=== PATIENT | male | born 1945 | race Caucasian/White ===

== ENCOUNTER 2020-08-19 06:13 | Day surgery (SDC) | payer MEDICARE ==
[~2020-08-19] VITALS: Ht 195.6 cm; Wt 122.5 kg
--- NOTE | ~2020-08-19 | OP ---
PATIENT NAME: TRISTEN RAM MEDICAL RECORD: [id number] :47 LOCATION:D.OPS ADMISSION DATE: SURGEON: SHEILA VILLALPANDO MD DATE OF OPERATION: 08/19/2020 REFERRING PHYSICIAN: Dr. Lemon. OPERATION PERFORMED: Attempted creation of a left radiocephalic AV fistula at the wrist, which was abandoned due to calcifications in the radial artery and then creation of a right brachiocephalic Balaji type AV fistula. SURGEON: Sheila Villalpando MD ANESTHESIA: Regional nerve block and MAC per [employer]. PREOPERATIVE DIAGNOSIS: End-stage renal disease. POSTOPERATIVE DIAGNOSIS: End-stage renal disease. PREOPERATIVE NOTE: Mr. Ram is a 74-year-old gentleman with end-stage renal disease, who needs dialysis access. He is brought to the operating room at this time to create a fistula in his left arm. DESCRIPTION OF PROCEDURE: Under regional nerve block and sedation, the patient was placed in supine position and prepped and draped in a sterile manner. I used a proximal venous tourniquet and applied nitroglycerin ointment to the skin of the forearm and arm and then examined him with ultrasound and found the cephalic vein in the forearm and at the wrist was suitable for creation of the fistula. I did see calcification within the radial artery, but this did not appear to be prohibitive. The brachial artery at the antecubital level and the cephalic vein were very suitable also for creation of fistula and I decided to take a look at the radiocephalic first. I made a longitudinal incision and exposed the radial artery and the cephalic vein. The cephalic vein was ligated distally, transected and bevelled and mobilized and flushed with heparinized saline and prepared for anastomosis. The artery was exposed and controlled with Silastic loops. There was calcification present, but I felt that it was still probable that we can do the anastomosis and create a fistula. I made an arteriotomy and flushed the artery proximally and distally with heparinized saline and then performed an anastomosis end-of-vein to [id number] with running 7-0 Prolene and when the occluding loops and clamps were released, flow established immediately within the fistula, but gradually decreased and the fistula thrombosed. I believe this is due to the calcification on the radial artery and irregularity in the artery around the area of anastomosis. There was a radial artery flow proximally and to a lesser extent distally and I elected to proceed with the proximal fistula. A transverse antecubital incision was made in the brachial artery and cephalic vein exposed and prepared for anastomosis. A Balaji type end-of-vein to [id number] anastomosis was done with running 7-0 Prolene. The artery and vein were flushed with heparinized saline and treated with topical papaverine. When completed, the fistula functioned immediately. The suture line was hemostatic and there was good continuous pulsatile flow in the proximal cephalic vein with ultrasound. There was no evidence of ischemia of the hand and the wounds were then irrigated with saline and then closed with interrupted inverted OPERATIVE REPORT [id number] TRISTEN RAM 3-0 Vicryl and a running intracuticular 4-0 Stratafix. The incisions were sealed with Dermabond glue and dressed with Maxorb Ag, Tegaderm, and Cavilon skin prep. The patient was awakened from his anesthetic and was taken to the recovery room. Blood loss was insignificant, none replaced, about 25 cc. No drain was used and no surgical specimen was submitted for histopathology. The patient will be discharged to home today with a prescription for Gunpowder 5/325, small number of tablets and a followup appointment in my office for the next week. TRANSINT:[id number] Voice Confirmation ID: [id number] DOCUMENT ID: [id number] SHEILA VILLALPANDO MD CC: DIEGO LEMON MD [id number] DICTATION DATE: 08/29/20 1126 ACCREDITED LEGAL SECRETARY: 08/29/20 1215 [facility] 08/19/20 [place] [id number] [place] [id number]
[2020-08-19 06:47] LABS: BASOPHILS 0.6 % (0-2); EOSINOPHILS 5.4 % (0-7); HEMATOCRIT 33.6 % (42.0-54.0); HEMOGLOBIN 11.3 g/dL (13.5-17.5); LYMPHOCYTES 21.9 % (15-50); MCH 32.6 pg (26.0-34.0); MCHC 33.7 g/dL (31.0-37.0); MCV 96.7 fL (80.0-100.0); MEAN PLATELET VOLUME 8.4 fL (7.4-10.4); MONOCYTES 7.4 % (2-11); NEUTROPHILS 64.7 % (40-80); PLATELET COUNT 178 10x3/uL (130-400); RBC 3.48 10x6/uL (4.20-6.10); RDW 14.9 % (11.5-14.5)
[2020-08-19 07:00] LABS: ANION GAP 14.9 mmol/L (8-16); CALCIUM 8.8 mg/dL (8.5-10.1); CARBON DIOXIDE 26.5 mmol/L (21.0-32.0); CREATININE - SERUM 5.3 mg/dL (0.6-1.3); POTASSIUM - SERUM 4.4 mmol/L (3.5-5.1)
[2020-08-19] MEDS ORDERED: METOPROLOL TART50 MG PO (07:34)
[2020-08-19] MEDS ORDERED: LISINOPRIL10 MG PO (07:34)
[2020-08-19] MEDS ORDERED: FUROSEMIDE40 MG PO (07:34)
[2020-08-19] MEDS ORDERED: HYDROCODONE-AC1 EAC2 PO (07:35)
[2020-08-19] MEDS ORDERED: PHOSLO667 MG PO (07:36)
[2020-08-19] MEDS ORDERED: FLUTICASONE PRO16 GM NASAL (07:36)
[2020-08-19 07:40] LABS: INR 1.07 (0.85-1.17); PROTIME 12.9 SECONDS (11.6-15.0)
[2020-08-19 07:50] VITALS: Ht 195.6 cm; Wt 122.5 kg
[2020-08-19] MEDS ORDERED: HYDROCODON-ACE1 EAC7 PO (17:06)
== END 2020-08-19 18:50 | disposition home or self-care (01) ==
LOC: D.OPS 06:13
PROVIDERS: ATTEND Surgery
DX: N18.6 End stage renal disease (principal); Z99.2 Dependence on renal dialysis; I10 Essential (primary) hypertension